=== PATIENT | male | born 1955 | race Caucasian/White ===

== ENCOUNTER 2019-06-25 15:54 | Emergency (ER) | payer MEDICARE, OTHER, SELFPAY ==
[2019-06-25] VITALS (12 sets, daily range): BP systolic 112–150; BP diastolic 83–107; PULSE 92–148; RESP 16–22; TEMP 36.7; O2SAT 93–96
--- NOTE | ~2019-06-25 | XR_ITS ---
EXAMINATION: XR chest 2V DATE: 06/25/2019 16:37 INDICATION: Tachycardia, atrial fibrillation TECHNIQUE: PA and lateral views of the chest are obtained. COMPARISON: CT, 10/07/2018 FINDINGS: There is a stable granuloma of the right lower lobe. The lungs are free of acute opacities. There is no pleural effusion or pneumothorax. The cardiomediastinal silhouette is normal. There are bridging osteophytes at multiple levels in the spine, consistent with diffuse idiopathic skeletal hyp erostosis (DISH). IMPRESSION: 1. No acute cardiopulmonary abnormality. Reviewed, dictated and finalized at location A. SMISSION TECHNICIAN
--- NOTE | 2019-06-25 16:09 | ECG_ITS ---
Measurements Intervals [place] Rate: 139 P: 184 CA: 116 QRS: -42 QRSD: 86 T: 78 QT: 302 QTc: 460 Interpretive Statements ATRIAL FLUTTER/TACHYCARDIA WITH RAPID VENTRICULAR RESPONSE LEFT AXIS DEVIATION DELAYED PRECORDIAL R/S TRANSITION NONSPECIFIC ST & T-WAVE ABNORMALITY- LATERAL LEADS BASELINE ARTIFACT- II, AVR, AVL, AVF, V1-V2 ABNORMAL ECG Electronically Signed On 06-25-2019 16:29:39 CLINICAL TRIALS MANAGER by Rafael Rivera D.O.
[2019-06-25 16:22] LABS: Basophils Absolute Auto 0.1 K/mm3 (0.0-0.1); Basophils Percent Auto 0.9 % (0.2-1.2); Eosinophils Absolute Auto 0.2 K/mm3 (0-0.3); Hematocrit 47.6 % (42.0-52.0); Hemoglobin 15.7 g/dL (14.0-18.0); Immature Granulocyte Absolute 0.02 K/mm3 (0.00-0.031); Immature Granulocyte Percent A 0.3 % (0-0.5); Lymphocytes Absolute Auto 1.53 K/mm3 (0.9-3.2); Lymphocytes Percent Auto 19.4 % (18.3-44.2); Mean Corpuscular Hemoglobin 31.9 pg (26-34); Mean Corpuscular Volume 96.7 fl (80-100); Mean Platelet Volume 11.3 fl (7.4-10.4); Monocytes Absolute Auto 1.2 K/mm3 (0.1-0.6); Monocytes Percent Auto 14.7 % (2.6-8.5); Neutrophils Percent Auto 62.7 % (45.5-73.1); Platelet Count Result 293 k/mm3 (150-375); Red Blood Count 4.92 M/mm3 (4.6-6.20); Red Cell Distribution Width 13.5 % (11.5-14.5); White Blood Count 7.9 K/mm3 (4.5-10.0)
--- NOTE | 2019-06-25 16:22 | ED.ARRPALP ---
HPI - Arrhythmia/Palpitations General Chief Complaint: Arrhythmia/Palpitations Stated Complaint: Rapid Heart Rate Time Seen by Provider: 06/25/19 16:20 Source: patient, family and RN notes reviewed Mode of arrival: ambulatory Limitations: no limitations History of Present Illness HPI narrative: A 64 y/o male presents to the ED with constant tachycardia for the past 3 days. He states that his HR has been between 130-140 for the past 3 days. He reports some associated intermittent dizziness and intermittent SOB. He notes that he has a hx of A-fib for which he had a ablation done. He denies any fevers, chills, sweats, CP, N/V/D, ABD pain, and any other complaints at this time. MD complaint: rapid heart beat Onset (ago): day(s) (3) Duration: constant Arrhythmia history: atrial fibrillation and history of ablation Associated symptoms: shortness of breath and other (dizziness) Related Data Home Medications Medication Instructions Recorded Confirmed Saccharomyces boulardii 250 mg 250 mg PO DAILY cap 05/08/19 06/25/19 capsule dronedarone 400 mg tablet 400 mg PO DAILY tablet 05/08/19 06/25/19 ibuprofen 200 mg capsule 200 mg PO Q6H PRN 05/08/19 06/25/19 omeprazole 20 mg capsule,delayed 20 mg PO DAILY PRN 05/08/19 06/25/19 release psyllium seed (sugar) 2 tsp PO DAILY gm 05/08/19 06/25/19 Allergies Allergy/AdvReac Type Severity Reaction Status Date / Time Sulfa (Sulfonamide Allergy Unknown Headache Verified 06/25/19 14:33 Antibiotics) Review of Systems Review of Systems: All systems reviewed & are unremarkable except as noted in HPI and below Constitutional: Constitutional: Denies chills, Denies fatigue, Denies fever(s), Denies headache(s) and Denies night sweats Eyes: Eyes: Denies change in vision, Denies loss of vision and Denies other visual disturbances ENT: Denies headache(s), Denies hoarseness, Denies epistaxis, Denies nasal congestion and Denies sore throat Cardiovascular: Cardiovascular: Denies chest pain, Reports rapid heart rate and Denies leg edema Respiratory: Respiratory: Denies cough, Reports dyspnea (intermittent) and Denies wheezing Gastrointestinal: Gastrointestinal: Denies abdominal pain, Denies diarrhea, Denies nausea and Denies vomiting Genitourinary: Genitourinary: Denies hematuria, Denies dysuria and Denies urinary frequency Musculoskeletal: Musculoskeletal: Denies abnormal gait, Denies deformity, Denies joint swelling, Denies muscle weakness and Denies numbness Integumentary/Breasts: Skin/Breast: Denies rash, Denies unusual bruising and Denies wounds Neurologic: Denies abnormal gait, Reports dizziness (intermittent), Denies headache(s), Denies focal weakness, Denies loss of vision and Denies numbness Psychiatric: Psychiatric: Reports no additional psychiatric complaints Endocrine: Endocrine: Denies fatigue Hematologic/Lymphatic: Hematologic/Lymphatic: Denies easy bleeding and Denies easy bruising Allergic/Immunologic: Allergic/Immunologic: Denies wheezing PMFSH Past Medical History Medical History Atrial fibrillation BCC (basal cell carcinoma) Dermatitis Diverticulosis GERD (gastroesophageal reflux disease) Hemorrhoid History of GI bleed History of rectal polyps Hyperlipidemia Hypertension Hypothyroidism Mumps Type 2 diabetes mellitus Wrist fracture, left Surgical History Surgical History H/O prior ablation treatment 05/2015 H/O shoulder surgery 05/2016 History of local excision of skin lesion History of nasal surgery Hx of cardiac cath Family History Family History Mother Acute myocardial infarction Sibling Family history of malignant neoplasm of breast in first degree relative Father Pharyngeal cancer Social History Social History Smoking status: Former smoker Smoking end date:
[2019-06-25 16:32] LABS: Prothrombin Time 12.5 Seconds (11.1-14.7)
[2019-06-25 16:33] LABS: Blood Urea Nitrogen 15 mg/dL (9-20); Calcium 9.4 mg/dL (8.4-10.2); Carbon Dioxide 23 mmol/L (22-30); Chloride 101 mmol/L (98-107); Estimated Glomerular Filt Rate > 60; Glucose 129 mg/dL (75-110); Partial Thromboplastin Time 26.2 SECONDS (22.3-36.8); Sodium 139 mmol/L (137-145)
[2019-06-25 16:45] LABS: Troponin I < 0.012 ng/mL (0.000-0.034)
[2019-06-25] MEDS: METOPROLOL TARTRATE INJ 5 MG/5 ML VIAL IV PUSH ×4 (17:06→20:14)
[2019-06-25] MEDS: LACTATED RINGERS 1,000 ML 999 ML IV CONT (17:06)
--- NOTE | 2019-06-25 18:03 | ECG_ITS ---
Measurements Intervals [place] Rate: 100 P: RI: 0 QRS: -48 QRSD: 101 T: 62 QT: 352 QTc: 455 Interpretive Statements ATRIAL FLUTTER/TACHYCARDIA WITH RAPID VENTRICULAR RESPONSE LEFT ANTERIOR FASCICULAR BLOCK VOLTAGE CRITERIA FOR LVH ABNORMAL ECG Electronically Signed On 06-25-2019 20:06:23 PRODUCTION CONTROL EXPERT by Rafael Rivera D.O.
--- NOTE | 2019-06-25 19:16 | PC.NURSE ---
pt received 1l NS as ordered would not allow me to stop infusion
[2019-06-25 19:48] LABS: Troponin I 0.013 ng/mL (0.000-0.034)
[2019-06-25] MEDS: ASPIRIN 81 MG CHEWABLE TABLET 324 MG PO (20:13)
== END 2019-06-25 20:53 | disposition home or self-care (01) ==
PROVIDERS: Emergency Medicine; Emergency Provider Emergency Medicine; PCP Internal Medicine
DX: I48.92 Unspecified atrial flutter (principal); Z85.828 Personal history of other malignant neoplasm of skin; K21.9 Gastro-esophageal reflux disease without esophagitis; Z87.19 Personal history of other diseases of the digestive system; E78.5 Hyperlipidemia, unspecified; I10 Essential (primary) hypertension; E03.9 Hypothyroidism, unspecified; E11.9 Type 2 diabetes mellitus without complications; Z87.891 Personal history of nicotine dependence
CPT/HCPCS: 36415; 71046; 80048; 84443; 84484; 85025; 85610; 85730; 93005; 96361; 96374; 96376; 99284; A9270; J7120

== ENCOUNTER 2020-01-25 01:14 | Outpatient (CLI) | payer MEDICARE, OTHER, SELFPAY ==
[2020-01-25 18:02] LABS: SARS-CoV-2 RNA PCR Negative
== END 2020-01-25 01:15 | disposition home or self-care (01) ==
LOC: ANHCOVIDDT 01:15
PROVIDERS: PCP Internal Medicine; Visit Provider Internal Medicine Gastroenterology
DX: Z01.812 Encounter for preprocedural laboratory examination (principal); Z20.828 Contact with and (suspected) exposure to other viral communicable diseases
CPT/HCPCS: 87635; C9803; U0003

== ENCOUNTER 2020-01-27 02:12 | Day surgery (SDC) | payer MEDICARE, OTHER, SELFPAY ==
[2020-01-22 13:58] VITALS: BMI 34.0
[2020-01-27 09:47] VITALS: BP 148/80; PULSE 69; RESP 16; TEMP 36.6; O2SAT 95; BMI 34.0
[2020-01-27] MEDS: LACTATED RINGERS 1,000 ML 150 ML IV CONT (09:58)
--- NOTE | 2020-01-27 10:02 | WPDANESEPPF ---
Anes - Initial Pre Proc Eval Procedure: Operation Date: 01/27/20 10:30 Proposed Procedures p Colonoscopy - Luis Linares MD Date/Time: 01/27/20 10:02 Surgeon: Luis Linares MD Pre Op Diagnosis: Change in Bowel Habits Patient Data Age: 64 Gender: M Height: 6 ft 2 in Weight: 120.4 kg Last Vital Signs Temp 36.6 C 01/27/20 09:47 Pulse 69 01/27/20 09:47 Resp 16 01/27/20 09:47 BP 148/80 H 01/27/20 09:47 Pulse Ox 95 01/27/20 09:47 Allergies Allergy/AdvReac Type Severity Reaction Status Date / Time Sulfa (Sulfonamide Allergy Unknown Headache Verified 01/27/20 09:46 Antibiotics) Home Medications Medication Instructions Recorded Confirmed Type blood sugar diagnostic #100 each 05/05/19 06/25/19 Rx blood-glucose meter #1 each 05/08/19 06/25/19 Rx psyllium seed (sugar) 2 tsp PO DAILY gm 05/08/19 01/22/20 History levothyroxine 75 mcg tablet 75 mcg PO DAILY #90 tablet 10/06/19 01/27/20 Rx apixaban 5 mg tablet 5 mg PO BID 12/09/19 01/27/20 History omeprazole magnesium 20 mg 20 mg PO DAILY 12/09/19 01/22/20 History tablet,delayed release pravastatin 20 mg tablet 20 mg PO DAILY #90 tablet 12/17/19 01/22/20 Rx losartan 50 mg PO DAILY 01/22/20 01/27/20 History metformin 500 - 1,000 mg BID 01/22/20 01/27/20 History metoprolol tartrate 75 mg PO BID 01/22/20 01/27/20 History Patient hx anesthesia problems: none Family hx anesthesia problems: none PMFSH Past Medical History Medical History Atrial fibrillation BCC (basal cell carcinoma) Dermatitis Diverticulosis GERD (gastroesophageal reflux disease) Hemorrhoid History of GI bleed History of rectal polyps Hyperlipidemia Hypertension Hypothyroidism Mumps Type 2 diabetes mellitus Wrist fracture, left Surgical History Surgical History H/O prior ablation treatment 05/2015 H/O shoulder surgery 05/2016 History of local excision of skin lesion History of nasal surgery Hx of cardiac cath Status post circumferential ablation of pulmonary vein Family History Family History Mother Acute myocardial infarction Sibling Family history of malignant neoplasm of breast in first degree relative Father Pharyngeal cancer Social History Social History Smoking packs per day: 1.5 Smoking cigarettes per day: 30.0 Years smoked: 30 Smoking pack-years: 45.00 Smoking status: Former smoker Tobacco type: cigarettes Smoking end date: 04/29/11 Alcohol intake: current Drinks per week: 21 Living arrangements: with family Gender identity (if verbalized by the patient): Male Spiritual care concerns: No Anes - Eval Final PreProcedure Day of Procedure 01/27/20 10:02 Patient weight: obese Heart: regular rate and rhythm Lungs: decreased breath sounds Airway: Mallampati scale class III Neurological: alert and oriented Last oral intake: >/= 8 hours ASA classification: III Emergent: no Anesthetic plan: proceed Anesthesia type and monitoring: general GIVS and standard monitoring Informed Consent: The patient's anesthetic plan and its attendant risks and benefits were discussed with the patient/family/POA. Questions were solicited and answers provided to the satisfaction of the patient/family/POA.
[2020-01-27 10:04] LABS: Glucose Point of Care 143 (65-105)
--- NOTE | 2020-01-27 10:04 | PM.HPGS ---
History of Present Illness History of Present Illness Consent: Risks, benefits, and alternatives have been discussed and questions answered. Patient agrees to proceed with procedure. Chief complaint: Change in Bowel Habits Narrative: Ghassan Pacheco is a 64 year old W male referred for colonoscopy secondary history of chronic diarrhea. Patient has been evaluated for this in the past. colonoscopy was normal random biopsies were negative for microscopic colitis. There is a family history of inflammatory bowel disease 1 son with ulcerative colitis and another son with Crohn's disease. Patient was evaluated in [place] several years prior to that time negative evaluation. He has had celiac sprue antibodies which are negative. Blood work was otherwise normal. Patient is diabetic he is on metformin which could be playing a role in his symptoms as well. Patient states that he has 2-3 soft loose to soft bowel movements in the morning. He has no rectal bleeding no weight loss. No family history of colon cancer. [facility] Past Medical History Medical History Atrial fibrillation BCC (basal cell carcinoma) Dermatitis Diverticulosis GERD (gastroesophageal reflux disease) Hemorrhoid History of GI bleed History of rectal polyps Hyperlipidemia Hypertension Hypothyroidism Mumps Type 2 diabetes mellitus Wrist fracture, left Surgical History Surgical History H/O prior ablation treatment 05/2015 H/O shoulder surgery 05/2016 History of local excision of skin lesion History of nasal surgery Hx of cardiac cath Status post circumferential ablation of pulmonary vein Family History Family History Mother Acute myocardial infarction Sibling Family history of malignant neoplasm of breast in first degree relative Father Pharyngeal cancer Social History Social History Smoking packs per day: 1.5 Smoking cigarettes per day: 30.0 Years smoked: 30 Smoking pack-years: 45.00 Smoking status: Former smoker Tobacco type: cigarettes Smoking end date: 04/29/11 Alcohol intake: current Drinks per week: 21 Living arrangements: with family Gender identity (if verbalized by the patient): Male Spiritual care concerns: No Meds Home Medications and Allergies Home Medications Medication Instructions Recorded Confirmed Type blood sugar diagnostic #100 each 05/05/19 06/25/19 Rx blood-glucose meter #1 each 05/08/19 06/25/19 Rx psyllium seed (sugar) 2 tsp PO DAILY gm 05/08/19 01/22/20 History levothyroxine 75 mcg tablet 75 mcg PO DAILY #90 tablet 10/06/19 01/27/20 Rx apixaban 5 mg tablet 5 mg PO BID 12/09/19 01/27/20 History omeprazole magnesium 20 mg 20 mg PO DAILY 12/09/19 01/22/20 History tablet,delayed release pravastatin 20 mg tablet 20 mg PO DAILY #90 tablet 12/17/19 01/22/20 Rx losartan 50 mg PO DAILY 01/22/20 01/27/20 History metformin 500 - 1,000 mg BID 01/22/20 01/27/20 History metoprolol tartrate 75 mg PO BID 01/22/20 01/27/20 History Allergies Allergy/AdvReac Type Severity Reaction Status Date / Time Sulfa (Sulfonamide Allergy Unknown Headache Verified 01/27/20 09:46 Antibiotics) Vital Signs Vital Signs - 24 hr 01/27/20 09:47 Temperature 36.6 C Pulse Rate 69 Respiratory Rate 16 Blood Pressure 148/80 H Pulse Oximetry 95 Exam Const: Orientation/consciousness: patient oriented x3 Resp: Auscultation: clear to auscultation bilaterally Cardio: Rate: regular rate Rhythm: regular rhythm Heart sounds: no murmurs GI: GI Palp: Yes Soft to palpation, No Tenderness to palpation present (GI), Yes No hepatosplenomegaly present and No Palpable mass present Auscultation: normal bowel sounds Neuro: General: patient oriented x3 and no focal motor deficits Extrem:
[2020-01-27 11:03] VITALS: BP 109/62; PULSE 67; RESP 17; O2SAT 95
[2020-01-27 11:13] VITALS: BP 117/67; PULSE 61; RESP 18; O2SAT 93
[2020-01-27 11:23] VITALS: BP 133/69; PULSE 60; RESP 18; O2SAT 94
== END 2020-01-27 11:40 | disposition home or self-care (01) ==
PROVIDERS: PCP Internal Medicine; Visit Provider Internal Medicine Gastroenterology
PROC: 0DJD8ZZ Inspection of Lower Intestinal Tract, Via Natural or Artificial Opening Endoscopic (ICD-10-PCS; CPT 45378; principal; 2020-01-27 10:30)
DX: Z12.11 Encounter for screening for malignant neoplasm of colon (principal); K57.30 Diverticulosis of large intestine without perforation or abscess without bleeding; K64.8 Other hemorrhoids; K64.4 Residual hemorrhoidal skin tags; I48.91 Unspecified atrial fibrillation; K21.9 Gastro-esophageal reflux disease without esophagitis; E78.5 Hyperlipidemia, unspecified; I10 Essential (primary) hypertension; E03.9 Hypothyroidism, unspecified; E11.9 Type 2 diabetes mellitus without complications; Z79.01 Long term (current) use of anticoagulants; Z79.84 Long term (current) use of oral hypoglycemic drugs; E66.9 Obesity, unspecified; Z68.34 Body mass index [BMI] 34.0-34.9, adult
CPT/HCPCS: G0121; J7120

== ENCOUNTER 2020-10-07 07:29 | Outpatient (CLI) | payer MEDICARE, OTHER, SELFPAY ==
--- NOTE | 2020-10-07 | EST_ITS ---
Patient Info Name: Ghassan Pacheco Age: 65 years : 1955 Gender: Male Ht: 74 in Wt: 265 lbs BSA: 2.54 m2 Exam Date: 10/07/2020 9:37 AM Exam Location: [facility] Stress Patient Status: Outpatient Admit Date: 10/07/2020 Staff Ordering Physician: Rafael Rivera DO Attending Provider: Rafael Rivera DO Exercise Technologist: Julieta Tafoya RDCS Exercise Physician: Rafael Rivera DO Exam Type: CA stress romaine w NM Study Info A regadenoson stress test was performed. Summary 1. 1. Negative lexiscan stress test for ischemic ST changes by ECG criteria. 2. 2. Frequent ventricular ectopies. 3. 3. Stable hemodynamics throughout the test. 4. 4. Nuclear scan to follow and will be reported separately. Please correlate with it. Protocol: Lexiscan Stress ECG Details Stage: REST Duration (min): 5 min : 38 sec HR (bpm): 69 SBP (mmHg): 128 DBP (mmHg): 87 Stage: REST Duration (min): 5 min : 58 sec HR (bpm): 65 SBP (mmHg): 128 DBP (mmHg): 87 Stage: REST Duration (min): 12 min : 40 sec HR (bpm): 71 SBP (mmHg): 128 DBP (mmHg): 87 Stage: STAGE 1 Duration (min): 1 min : 0 sec HR (bpm): 84 SBP (mmHg): 123 DBP (mmHg): 89 Stage: RECOVERY Duration (min): 1 min : 0 sec HR (bpm): 83 SBP (mmHg): 123 DBP (mmHg): 89 Stage: RECOVERY Duration (min): 2 min : 0 sec HR (bpm): 81 SBP (mmHg): 123 DBP (mmHg): 89 Stage: RECOVERY Duration (min): 3 min : 0 sec HR (bpm): 78 SBP (mmHg): 107 DBP (mmHg): 93 Stage: RECOVERY Duration (min): 4 min : 0 sec HR (bpm): 81 SBP (mmHg): 107 DBP (mmHg): 93 Stage: RECOVERY Duration (min): 5 min : 0 sec HR (bpm): 78 SBP (mmHg): 107 DBP (mmHg): 93 Stage: RECOVERY Duration (min): 5 min : 42 sec HR (bpm): 78 SBP (mmHg): 127 DBP (mmHg): 96 Rest HR: 71 bpm Peak HR: 90 bpm Rest Sys BP: 128 mmHg Peak Sys BP: 127 mmHg Max Pred HR: 153 bpm % Max Pred HR: 59 % Target HR: 130 bpm Max RPP: 11,430 bpm*mmHg Termination Reason: Completed protocol Cardiac Symptoms: Shortness of breath Total Time: 1 min : 0 sec Rest Newman BP: 87 mmHg Peak Newman BP: 96 mmHg Total Dose: 0.4 mg Resting ECG Sinus rhythm, BRWP, frequent PVC's. Stress ECG No ST changes. Arrhythmias None. Report Signatures
--- NOTE | ~2020-10-07 | NM_ITS ---
EXAMINATION: NM romaine stress w perfusion DATE: 10/07/2020 10:48 INDICATION: Dyspnea on exertion. TECHNIQUE: Rest images were obtained following intravenous administration of 11.5 mCi Tc99m tetrofosm in (Myoview). The patient was infused intravenously with Lexiscan (regadenoson). Then, 33.7 mCi Tc99m tetrofosmin (Myoview) was administered intravenously, and stress images were obtained. Data was lita nstructed into short axis and horizontal and vertical long axis SPECT images. Gated SPECT images were also obtained. COMPARISON: None. FINDINGS: There is a small, mild, reversible perfusion defect involving apical lateral segment of lef t ventricle, consistent with ischemia. There is no segmental wall motion abnormality. Left ventricu lar ejection fraction measures 54%. IMPRESSION: 1. Small area of mild ischemia involving apical lateral segment of left ventricle.. 2. Normal left ventricular ejection fraction measuring 54%. Reviewed, dictated and finalized at location A. IMPRESSION: 1. Small area of mild ischemia involving apical lateral segment of left ventric le.. 2. Normal left ventricular ejection fraction measuring 54%.
--- NOTE | 2020-10-07 07:50 | ECHO_ITS ---
Patient Info Name: Ghassan Pacheco Age: 65 years : 1955 Gender: Male Ht: 74 in Wt: 265 lbs BSA: 2.54 m2 HR: 77 bpm BP: 160 / 90 mmHg Technical Quality: Good Exam Date: 10/07/2020 8:03 AM Exam Location: [facility] Patient Status: Outpatient Admit Date: 10/07/2020 Staff Ordering Physician: Rafael Rivera DO Missile Inspector: Robert Doshi RDCS, RT Attending Provider: Rafael Rivera DO Referring Physician: Miguel SAMUEL; Exam Type: CA echo doppler color flow Study Info Indications R06.00 - Dyspnea, unspecified Complete two-dimensional, color flow and Doppler transthoracic echocardiogram is performed. Summary 1. Complete two-dimensional, color flow and Doppler transthoracic echocardiogram is performed. 2. Left ventricular chamber dimension is mildly enlarged. 3. Left ventricular systolic function is normal, estimated at 55-60%. 4. There is moderately increased left ventricular wall thickness. 5. The left ventricular diastolic function is normal. 6. Tissue doppler is not performed. 7. Ventricular ectopics during exam. 8. Left atrial chamber dimension is moderately enlarged. 9. Right atrial chamber dimension is mildly enlarged. 10. The mitral valve has moderately calcified annulus. 11. There is moderate mitral valve regurgitation. 12. There is trace tricuspid valve regurgitation. 13. Mild pulmonary hypertension, estimated pulmonary arterial systolic pressure is 49 mmHg. 14. Dilated inferior vena cava with >50% collapse upon inspiration consistent with elevated right atrial pressure, 10 mmHg. Left Ventricle Tissue doppler is not performed. Left ventricular chamber dimension is mildly enlarged. Left ventricular systolic function is normal, estimated at 55-60%. There is moderately increased left ventricular wall thickness. The left ventricular diastolic function is normal. Ventricular ectopics during exam. Right Ventricle Right ventricular systolic function is normal with normal TAPSE 2.8 cm.. Right ventricular chamber dimension is normal. Left Atria Left atrial chamber dimension is moderately enlarged. Right Atria Right atrial chamber dimension is mildly enlarged. Aortic Valve The aortic valve is trileaflet. There is no aortic valve stenosis. There is no aortic valve regurgitation. Pulmonic Valve There is no pulmonic regurgitation. Mitral Valve The mitral valve has moderately calcified annulus. There is no mitral valve stenosis. There is moderate mitral valve regurgitation. Tricuspid Valve There is trace tricuspid valve regurgitation. Mild pulmonary hypertension, estimated pulmonary arterial systolic pressure is 49 mmHg. Pericardium/Pleural There is no pericardial effusion. Inferior Vena Cava Dilated inferior vena cava with >50% collapse upon inspiration consistent with elevated right atrial pressure, 10 mmHg. Aorta The aortic root size at the sinus of Valsalva is normal. Left Ventricular Outflow Tract Name Value Normal LVOT 2D LVOT Diameter 2.2 cm LVOT Doppler LVOT Peak Gradient 4 mmHg LVOT Mean Gradient 1 mmHg
== END 2020-10-07 07:30 | disposition home or self-care (01) ==
PROVIDERS: PCP Internal Medicine; Visit Provider Internal Medicine Cardiovascular Disease
DX: R06.00 Dyspnea, unspecified (principal)
CPT/HCPCS: 78452; 93017; 93306; A9502; J2785

== ENCOUNTER 2020-10-25 01:50 | Day surgery (SDC) | payer MEDICARE, OTHER, SELFPAY ==
[2020-10-24 14:35] VITALS: BMI 34.0
[2020-10-25] VITALS (9 sets, daily range): BP systolic 119–141; BP diastolic 70–88; PULSE 56–71; RESP 16–18; TEMP 36.1–36.2; O2SAT 94–98; BMI 34.4
--- NOTE | 2020-10-25 08:29 | WPDMODSED ---
Moderate Sedation Note-Pt Data Patient Data Allergies Allergy/AdvReac Type Severity Reaction Status Date / Time Sulfa (Sulfonamide Allergy Unknown Headache Verified 10/24/20 14:45 Antibiotics) Home Medications Medication Instructions Recorded Confirmed Type blood-glucose meter #1 each 05/08/19 10/13/20 Rx apixaban 5 mg tablet 5 mg PO BID 12/09/19 10/24/20 History pravastatin 20 mg tablet 20 mg PO DAILY #90 tablet 12/17/19 10/24/20 Rx levothyroxine 75 mcg tablet 75 mcg PO DAILY #90 tablet 08/31/20 10/24/20 Rx losartan 100 mg tablet 100 mg PO DAILY #30 tablet 09/14/20 10/24/20 Rx omeprazole magnesium 20 mg 40 mg PO DAILY tablet 10/04/20 10/24/20 History tablet,delayed release cholestyramine-aspartame 4 gram 4 g PO DAILY #42 g 10/11/20 10/24/20 Rx oral powder for susp in a packet glipizide 5 mg tablet 5 mg PO DAILY #90 tablet 10/11/20 10/24/20 Rx metformin 1,000 mg tablet 1,000 mg PO BID #180 tablet 10/11/20 10/24/20 Rx psyllium husk [Metamucil] 1 tbsp PO DAILY 10/24/20 10/24/20 History Current Medications: Active Medications Sodium Chloride (Normal Saline Iv) 500 mls @ 100 mls/hr IV CONT .Q5H JENNIFER Sedation/Anesthesia: No previous sedation/anesthesia problems (including family history). [facility] Past Medical History Medical History Atrial fibrillation BCC (basal cell carcinoma) Dermatitis Diverticulosis GERD (gastroesophageal reflux disease) Hemorrhoid History of GI bleed History of rectal polyps Hyperlipidemia Hypertension Hypothyroidism Mumps Type 2 diabetes mellitus Wrist fracture, left Surgical History Surgical History H/O prior ablation treatment 05/2015 H/O shoulder surgery 05/2016 History of local excision of skin lesion History of nasal surgery Hx of cardiac cath Status post circumferential ablation of pulmonary vein Family History Family History Mother Acute myocardial infarction Sibling Family history of malignant neoplasm of breast in first degree relative Father Pharyngeal cancer Social History Social History Smoking packs per day: 1.5 Smoking cigarettes per day: 30.0 Years smoked: 45 Smoking pack-years: 67.50 Smoking status: Former smoker Tobacco type: cigarettes Smoking end date: 04/29/14 Alcohol intake: current Drinks per week: 7 Alcohol use details: patient states he drinks 1-2 glasses of liquor per night Substance use: never Living arrangements: with family Gender identity (if verbalized by the patient): Male Sexual Orientation (if Verbalized by the Patient): Straight or Heterosexual Spiritual care concerns: No Mod Sed Physical Exam Physical Exam Pre Procedural Exam: Normal: Airway Hours since solid foods: 10 Hours since liquid intake: 10 Internal Medicine - PN: Obj Da Vital Signs Vital Signs: Vital Signs - 24 hr 10/25/20 07:31 Temperature 36.2 C L Pulse Rate 71 Respiratory Rate 18 Blood Pressure 141/70 H Pulse Oximetry 97 Meds/Results Medications: Active Medications Generic Name Dose Route Start Last Admin Trade Name Freq PRN Reason Stop Dose Admin Sodium Chloride 500 mls @ 100 mls/hr 10/25/20 07:00 Normal Saline Iv IV CONT .Q5H JENNIFER ASA Classification/Sedation ASA Classification/Sedation ASA Class: III Emergent: No Risks: Risks, benefits and alternatives explained and patient/family accepted plan for sedation. Patient re-evaluated immediately prior to sedation.
--- NOTE | 2020-10-25 08:30 | WPDHPUPDATE1 ---
History and Physical Update Update Date/Time: 10/25/20 08:30 History and Physical has been reviewed, including an updated exam of the patient. There are NO changes in the patient's condition. Risks, benefits, and alternatives have been discussed and questions answered. Patient agrees to proceed with procedure.
--- NOTE | 2020-10-25 09:06 | WPDCARDPROC ---
Cardiac Cath Procedure Note Date of procedure:: 10/25/20 Performing physician:: Keith Cruz MD Procedure Procedure note:: LEFT HEART CATHETERIZATION AND CORONARY ANGIOGRAM REPORT DATE OF PROCEDURE: 10/25/2020 INDICATION FOR PROCEDURE: Dyspnea on exertion, coronary risk factors, abnormal MPI BRIEF CLINICAL HISTORY: 65-year-old male with hypertension, atrial fibrillation with history of radiofrequency ablation x2; diabetes mellitus, JAZ on CPAP, COPD. Patient was referred by Dr. Rivera for cardiac catheterization in the setting of dyspnea on exertion and abnormal MPI. MPI from 10/07/2020 reportedly showed small area of mild ischemia involving apical lateral segment of left ventricle; EF 54%. Benefits and risks of the procedure were discussed with the patient in depth, and informed consent was obtained prior to the procedure. Risks of the procedure include but are not limited to vascular complications including groin hematoma, retroperitoneal bleed, vessel perforation; periprocedural CA, cardiac arrhythmias, stroke, contrast induced nephropathy, and . After discussing all the benefits, risks and alternatives, patient was willing to proceed with the procedure. PROCEDURES PERFORMED: 1. Left heart catheterization- Selective left and right coronary angiogram; left ventriculogram and hemodynamic assessment 2. Selective right common femoral angiogram and deployment of Angio-Seal hemostatic device 3. Moderate sedation-CPT code 17124 MODERATE SEDATION: Midazolam 2 mg; fentanyl 50 mcg; Start time 0827 , Stop time 0900 ; Total [id number] time 33 minutes; Marly Guzmán RN was trained observer for moderate sedation. ACCESS SITE: Right common femoral artery PROCEDURE NOTE: After obtaining informed consent, patient was brought to catheterization lab and prepped and draped in a usual sterile manner. After local anesthesia with lidocaine, right common femoral artery access was taken with micropuncture needle followed by insertion of a 5 Dutch sheath. Selective left and right coronary angiogram was performed using 5 Dutch JL5 and JR4 catheters respectively. Orthogonal views were taken. Next, a 5 Dutch pigtail catheter was advanced in the LV cavity and was flushed with normal saline. LV pressure measurement was performed. After this, left ventriculogram was performed. The catheter was flushed again, and gradient across the aortic valve was measured on the pullback of the catheter. Finally, selective right common femoral angiogram was performed followed by successful deployment of Angio-Seal vascular closure device. Patient tolerated procedure well without any immediate procedure related complications. FINDINGS: LEFT MAIN CORONARY: the left main coronary artery is a large caliber ectatic vessel without significant focal stenosis. The vessel trifurcates into LAD, ramus intermedius and left circumflex branches. LEFT ANTERIOR DESCENDING ARTERY: The LAD has diffuse ectasia in the proximal segment with diffuse calcification; diffuse 30-40% narrowing in the upper mid segment distal to the ectatic segment. Minor irregularities are seen in the lower mid segment. The vessel tapers distally and reaches the LV apex. Sluggish blood flow is seen in the LAD. Major diagonal branch is a medium caliber vessel without significant focal stenosis. RAMUS INTERMEDIUS: Large caliber vessel with minor irregularities in the proximal segment. LEFT CIRCUMFLEX ARTERY: Medium to large caliber vessel, gives rise to smaller caliber OM1 and OM2, LPDA branches. No significant focal stenosis. RIGHT CORONARY ARTERY: medium caliber, codominant vessel. Minor plaque is seen in the proximal segment . The vessel continues as small to medium caliber PDA branch. LEFT VENTRICULOGRAM: Ventricular ectopy was seen during left ventriculogram. LV systolic function is preserved; ejection fraction about 60%. LVEDP 7 mmHg. HEMODYNAMIC ASSESSMENT: Opening pressure 111/64 , closing pressu
--- NOTE | 2020-10-25 09:13 | SUR.PHASEII ---
RETURNS TO HEAD OF [employer]TEGRATED [employer] 5 S/P [facility] W/ DR. BUTTERFIELD. AWAKE AND ALERT ON ARRIVAL. DENIES PAIN OR SOB. MONITOR SR W/ BIGEMINAL PVC'S NOTED. R. GROIN SITE SOFT, NONTENDER ON ARRIVAL. GAUZE AND TEGADERM DRESSING C/D/I. ANGIOSEAL CLOSURE TO R. GROIN PUNCTURE SITE. R. PEDAL PULSE STRONG. SENSATION AND MOVEMENT R. FOOT WNL. REVIEWED BEDREST ACTIVITY RESTRICTIONS W/ PT AND . VOICED UNDERSTANDING. IVF'S RUNNING ORDERED. WILL CONTINUE TO MONITOR.
--- NOTE | 2020-10-25 12:20 | SUR.PHASEII ---
REVIEWED DISCHARGE INSTRUCTIONS AND FOLLOW UP CARE W/ PT AND . QUESTIONS ANSWERED. VOICED UNDERSTANDING OF ALL. R. GROIN SITE UNCHANGED. DRESSING C/D/I. R. PEDAL PULSE STRONG. DISCHARGED HOME, OUT VIA WC TO 'S WAITING CAR WITH ALL PERSONAL BELONGINGS AND DISCHARGE PACKET. VOICES NO C/O. NO DISTRESS NOTED.
== END 2020-10-25 12:20 | disposition home or self-care (01) ==
PROVIDERS: PCP Internal Medicine; Visit Provider Internal Medicine Cardiovascular Disease
PROC: 4A023N7 Measurement of Cardiac Sampling and Pressure, Left Heart, Percutaneous Approach (ICD-10-PCS; CPT 93452; principal; 2020-10-25 08:00)
DX: I25.10 Atherosclerotic heart disease of native coronary artery without angina pectoris (principal); R06.00 Dyspnea, unspecified; I48.91 Unspecified atrial fibrillation; I49.8 Other specified cardiac arrhythmias; E11.9 Type 2 diabetes mellitus without complications; R94.39 Abnormal result of other cardiovascular function study; I10 Essential (primary) hypertension; G47.33 Obstructive sleep apnea (adult) (pediatric); J44.9 Chronic obstructive pulmonary disease, unspecified; Z85.828 Personal history of other malignant neoplasm of skin; L30.9 Dermatitis, unspecified; K57.90 Diverticulosis of intestine, part unspecified, without perforation or abscess without bleeding; K21.9 Gastro-esophageal reflux disease without esophagitis; E03.9 Hypothyroidism, unspecified; E78.5 Hyperlipidemia, unspecified; Z87.891 Personal history of nicotine dependence; Z79.01 Long term (current) use of anticoagulants; Z79.84 Long term (current) use of oral hypoglycemic drugs; E66.9 Obesity, unspecified; Z68.34 Body mass index [BMI] 34.0-34.9, adult
CPT/HCPCS: 93458; C1760; C1887; C1894; G0269; J1644; J2250; J3010; J7040

== ENCOUNTER 2021-12-11 16:35 | Outpatient (CLI) | payer MEDICARE, OTHER, SELFPAY ==
--- NOTE | ~2021-12-11 | CT_ITS ---
EXAMINATION:CT lung screening DATE: 12/11/2021 16:55 INDICATION: Tobacco use. Smoker quit 8 years ago with 35 pack year history. TECHNIQUE: Computed tomography (CT) of the chest was performed without intravenous contrast. Automate d exposure control and iterative reconstruction technique were employed. The dose-length product (DLP ) was 233.40 mGy-cm. COMPARISON: Chest CT 10/07/2018 FINDINGS: There is moderate emphysema. A calcified right lung nodule is consistent with old granuloma tous disease. There is mild atelectasis bilaterally. No pleural effusion. Cardiomegaly is noted. Ther e are coronary artery calcifications. No pericardial effusion. There are cysts in the liver measuring up to 3.3 cm. There are bridging endplate osteophytes at multiple levels in the spine, consistent wi th diffuse idiopathic skeletal hyperostosis (DISH). There is mild chronic anterior wedging of multipl e vertebral bodies. IMPRESSION: 1. Lung-RADS category 1: Negative. Continue annual screening with noncontrast low-dose chest CT in 12 months. Reviewed, dictated and finalized at location A. IMPRESSION: 1. Lung-RADS category 1: Negative. Continue annual screening with noncontrast l ow-dose chest CT in 12 months.
== END 2021-12-11 16:36 | disposition home or self-care (01) ==
PROVIDERS: PCP Internal Medicine; Visit Provider Nurse Practitioner
DX: Z12.2 Encounter for screening for malignant neoplasm of respiratory organs (principal); Z87.891 Personal history of nicotine dependence
CPT/HCPCS: 71271

== ENCOUNTER 2022-09-25 11:43 | Outpatient (CLI) | payer MEDICARE, OTHER, SELFPAY ==
[2022-09-25 14:28] LABS: Anion Gap 4 mmol/L (8-16); Blood Urea Nitrogen 24 mg/dL (9-20); Calcium 8.9 mg/dL (8.4-10.2); Carbon Dioxide 32 mmol/L (22-30); Chloride 103 mmol/L (98-107); Estimated Glomerular Filt Rate 60; Glucose 115 mg/dL (65-110); Potassium 4.6 mmol/L (3.4-5.0); Sodium 139 mmol/L (137-145)
== END 2022-09-25 11:44 | disposition home or self-care (01) ==
LOC: ANHGOSHLAB 11:44
PROVIDERS: PCP Family Medicine; Visit Provider Internal Medicine
DX: N28.9 Disorder of kidney and ureter, unspecified (principal)
CPT/HCPCS: 36415; 80048

== ENCOUNTER 2023-07-05 10:49 | Outpatient (CLI) | payer MEDICARE, OTHER, SELFPAY ==
--- NOTE | ~2023-07-05 | CT_ITS ---
CT Scan of the Chest without Contrast: Clinical Indication: Lung cancer screening, personal history of nicotine dependence Technique: Contiguous sections were acquired throughout the chest without intravenous contrast. Dose reduction technique was used on this scan by utilizing automated exposure control and iterative recon struction technique. The dose-length product (DLP) was 237.77 mGy-cm. COMPARISON: 12/11/2021 Findings: There is no evidence of any significant mediastinal, hilar or axillary lymphadenopathy. There are ath erosclerotic calcifications of the aorta and coronary arteries. There is no evidence of pleural or pericardial effusion. There is severe emphysema. 4 mm right middle lobe pulmonary nodule noted. Large calcified right lower lobe granuloma present. Images through the upper abdomen reveal left hepatic lobe cysts. Impression: Lung RADS 2: Benign appearance. 12 month follow-up screening CT advised. Advanced emphysema. Reviewed, dictated and finalized at [facility]. NETMAKER HELPER Impression: Lung RADS 2: Benign appearance. 12 month follow-up screening CT advised. Advanced emphysema.
== END 2023-07-05 10:50 | disposition home or self-care (01) ==
LOC: ANHIMG 10:52
PROVIDERS: PCP Internal Medicine; Visit Provider Nurse Practitioner
DX: Z12.2 Encounter for screening for malignant neoplasm of respiratory organs (principal); Z87.891 Personal history of nicotine dependence; J43.9 Emphysema, unspecified
CPT/HCPCS: 71271

== ENCOUNTER 2023-12-05 02:36 | Day surgery (SDC) | payer MEDICARE, OTHER, SELFPAY ==
[2023-11-21 09:07] VITALS: BMI 33.8
--- NOTE | 2023-12-04 11:14 | PC.NURSE ---
Addendum entered by Francheska Baker RN 12/04/23 15:41: Pt called and stated his dramatic arts historian Dr. Alexander got his message regarding being off the Eliquis for procedure tomorrow as planned and having episodes of a-fib. He stated he is okay to proceed and start the eliquis ambrose after procedure. Original Note: Pt called this morning to let us know he is in and out of A-fib again. He denies CP, sob or symptoms other than occ. palpitations. His rate is in the 60-70's, he stopped his Eliquis with last dose on 10/02/2023. He sent me rhythm strips via e-mail from his Phone.coma monitor, which shows A-fib and sinus rhythm with good rate control. I did speak with Dr. Ludwig anesthesia regarding this patient and we may proceed as long as patients rate remains controlled and he is asymptomatic. I relayed this to Mr. Pacheco and did encourage him to call his EP dramatic arts historian and inform and and inquire if he is okay with him remaining off the Eliquis to have this procedure tomorrow. He will call me after speaking with Dr. Alexander's office.
[2023-12-05 12:14] VITALS: BP 142/79; PULSE 70; RESP 18; TEMP 36.4; O2SAT 95; BMI 33.8
[2023-12-05] MEDS: LACTATED RINGERS 1,000 ML 150 ML IV CONT (12:27)
[2023-12-05 12:38] LABS: Glucose Point of Care 116 mg/dl (65-105)
--- NOTE | 2023-12-05 12:38 | WPDANESEPPF ---
Anes - Initial Pre Proc Eval Procedure: Operation Date: 12/05/23 13:30 Proposed Procedures p Esophagogastroduodenoscopy & Colonoscopy - Ming Craig MD Date/Time: 12/05/23 12:38 Surgeon: Ming Craig MD Pre Op Diagnosis: General abdominal pain, GERD without esophagitis Patient Data Age: 68 Gender: M Height: 1.88 m Weight: 119.5 kg Last Vital Signs Temp 97.5 F L 12/05/23 12:14 Pulse 70 12/05/23 12:14 Resp 18 12/05/23 12:14 BP 142/79 H 12/05/23 12:14 Pulse Ox 95 12/05/23 12:14 O2 Del Method Room Air 12/05/23 12:14 Allergies Allergy/AdvReac Type Severity Reaction Status Date / Time Sulfa (Sulfonamide Allergy Intermediate Headache Verified 12/05/23 12:09 Antibiotics) Home Medications Medication Instructions Recorded Confirmed Type blood-glucose meter (Contour Next #1 ea 05/08/19 12/05/23 Rx Meter) apixaban 5 mg tablet (Eliquis) 5 mg PO BID 12/09/19 12/05/23 History pravastatin 20 mg tablet See Rx Instructions .Route 09/05/22 12/05/23 Rx .COMPLEX #180 tabs loperamide 2 mg capsule (Imodium 2 mg PO Q6H PRN Diarrhea 09/25/22 12/05/23 History A-D) cholestyramine-aspartame 4 gram See Rx Instructions .Route 04/16/23 12/05/23 Rx oral powder for susp in a packet .COMPLEX #30 packets (Cholestyramine Light) blood sugar diagnostic (Contour #100 ea 05/17/23 12/05/23 Rx Next Test Strips) metformin 1,000 mg tablet See Rx Instructions .Route 06/19/23 12/05/23 Rx .COMPLEX #180 tabs metoprolol succinate 25 mg 25 mg PO DAILY 06/19/23 12/05/23 History tablet,extended release 24 hr levothyroxine 75 mcg tablet See Rx Instructions .Route 09/17/23 12/05/23 Rx .COMPLEX #90 tabs omeprazole 40 mg capsule,delayed 40 mg PO DAILY #30 caps 10/10/23 12/05/23 Rx release losartan 100 mg tablet See Rx Instructions .Route 10/14/23 12/05/23 Rx .COMPLEX #90 tabs ibuprofen 200 mg tablet 400 mg PO DAILY PRN Pain 11/21/23 12/05/23 History semaglutide 1 mg/dose (4 mg/3 mL) See Rx Instructions .Route 11/25/23 12/05/23 Rx subcutaneous pen injector (Ozempic) .COMPLEX #3 mL Patient hx anesthesia problems: none Family hx anesthesia problems: none Results Review: All pre-operative results and documents have been reviewed as part of the pre-operative evaluation. [facility] Past Medical History Medical History Atrial fibrillation BCC (basal cell carcinoma) COVID-19 Dermatitis Diverticulosis Emphysema of lung GERD (gastroesophageal reflux disease) Hemorrhoid History of GI bleed History of rectal polyps Hyperlipidemia Hypertension Hypothyroidism Mumps JAZ and COPD overlap syndrome Transaminitis Type 2 diabetes mellitus Wrist fracture, left Surgical History Surgical History H/O prior ablation treatment 05/2015 H/O shoulder surgery 05/2016 History of cataract surgery History of local excision of skin lesion History of nasal surgery Hx of cardiac cath Hx of cataract removal with insertion of prosthetic lens Status post circumferential ablation of pulmonary vein Family History Family History Mother Acute myocardial infarction Sibling Family history of malignant neoplasm of breast in first degree relative Father Pharyngeal cancer Social History Social History Smoking packs per day: 1.5 Smoking cigarettes per day: 30.0 Years smoked: 45 Smoking pack-years: 67.50 Smoking status: Former smoker Tobacco type: cigarettes Smoking end date: 04/29/14 Alcohol intake: current Drinks per week: 7 Alcohol use details: DRINKS Substance use: never Substance use type: does not use Lack of Transportation: No Lack of Food: Never True Current Housing: I Have Housing Concerned About Future Housing:
--- NOTE | 2023-12-05 13:00 | PM.HPGS ---
History of Present Illness History of Present Illness Consent: Risks, benefits, and alternatives have been discussed and questions answered. Patient agrees to proceed with procedure. Chief complaint: General abdominal pain, GERD without esophagitis Narrative: Ghassan Pacheco is a 68 year old male here for egd (last 2010) and colonoscopy (last 2019 with diverticulosis), gerd on ppi and rolaids, also alternating diarrhea and constipation using imodium as needed, stool calprotectin mildly elevated. Review of Systems Review of Systems: All systems reviewed & are unremarkable except as noted in HPI and below PMFSH Past Medical History Medical History Atrial fibrillation BCC (basal cell carcinoma) COVID-19 Dermatitis Diverticulosis Emphysema of lung GERD (gastroesophageal reflux disease) Hemorrhoid History of GI bleed History of rectal polyps Hyperlipidemia Hypertension Hypothyroidism Mumps JAZ and COPD overlap syndrome Transaminitis Type 2 diabetes mellitus Wrist fracture, left Surgical History Surgical History H/O prior ablation treatment 05/2015 H/O shoulder surgery 05/2016 History of cataract surgery History of local excision of skin lesion History of nasal surgery Hx of cardiac cath Hx of cataract removal with insertion of prosthetic lens Status post circumferential ablation of pulmonary vein Family History Family History Mother Acute myocardial infarction Sibling Family history of malignant neoplasm of breast in first degree relative Father Pharyngeal cancer Social History Social History Smoking packs per day: 1.5 Smoking cigarettes per day: 30.0 Years smoked: 45 Smoking pack-years: 67.50 Smoking status: Former smoker Tobacco type: cigarettes Smoking end date: 04/29/14 Alcohol intake: current Drinks per week: 7 Alcohol use details: DRINKS Substance use: never Substance use type: does not use Lack of Transportation: No Lack of Food: Never True Current Housing: I Have Housing Concerned About Future Housing: No Difficulty Paying Gas/Electric Bills: No Difficulty Paying for Meds: No Currently Unemployed: No Education: Bachelor's Degree Difficulty w/ Childcare or Family Care: No Living arrangements: with family Gender identity (if verbalized by the patient): Male Sexual Orientation (if Verbalized by the Patient): Straight or Heterosexual Spiritual care concerns: No Meds Home Medications and Allergies Home Medications Medication Instructions Recorded Confirmed Type blood-glucose meter (Contour Next #1 ea 05/08/19 12/05/23 Rx Meter) apixaban 5 mg tablet (Eliquis) 5 mg PO BID 12/09/19 12/05/23 History pravastatin 20 mg tablet See Rx Instructions .Route 09/05/22 12/05/23 Rx .COMPLEX #180 tabs loperamide 2 mg capsule (Imodium 2 mg PO Q6H PRN Diarrhea 09/25/22 12/05/23 History A-D) cholestyramine-aspartame 4 gram See Rx Instructions .Route 04/16/23 12/05/23 Rx oral powder for susp in a packet .COMPLEX #30 packets (Cholestyramine Light) blood sugar diagnostic (Contour #100 ea 05/17/23 12/05/23 Rx Next Test Strips) metformin 1,000 mg tablet See Rx Instructions .Route 06/19/23 12/05/23 Rx .COMPLEX #180 tabs metoprolol succinate 25 mg 25 mg PO DAILY 06/19/23 12/05/23 History tablet,extended release 24 hr levothyroxine 75 mcg tablet See Rx Instructions .Route 09/17/23 12/05/23 Rx .COMPLEX #90 tabs omeprazole 40 mg capsule,delayed 40 mg PO DAILY #30 caps 10/10/23 12/05/23 Rx release losartan 100 mg tablet See Rx Instructions .Route 10/14/23 12/05/23 Rx .COMPLEX #90 tabs ibuprofen 200 mg tablet 400 mg PO DAILY PRN Pain 11/21/23 12/05/23 History semaglutide 1 mg/dose (4 mg/3 mL) See Rx Instruc
--- NOTE | 2023-12-05 13:37 | SUR.OPER ---
EGD end 1331, Colonoscopy start time 1333
[2023-12-05 13:48] VITALS: BP 99/67; PULSE 65; RESP 16; O2SAT 95
[2023-12-05 13:58] VITALS: BP 103/67; PULSE 60; RESP 20; O2SAT 95
[2023-12-05 14:08] VITALS: BP 117/74; PULSE 70; RESP 23; O2SAT 94
== END 2023-12-05 14:18 | disposition home or self-care (01) ==
PROVIDERS: PCP Internal Medicine; Referring Provider Nurse Practitioner Family; Visit Provider Internal Medicine Gastroenterology
PROC: 0DJ08ZZ Inspection of Upper Intestinal Tract, Via Natural or Artificial Opening Endoscopic (ICD-10-PCS; CPT 43235; principal; 2023-12-05 13:30)
DX: K29.50 Unspecified chronic gastritis without bleeding (principal); K64.8 Other hemorrhoids; K57.30 Diverticulosis of large intestine without perforation or abscess without bleeding; K21.9 Gastro-esophageal reflux disease without esophagitis; I10 Essential (primary) hypertension; E78.5 Hyperlipidemia, unspecified; E03.9 Hypothyroidism, unspecified; E11.9 Type 2 diabetes mellitus without complications; I48.91 Unspecified atrial fibrillation; J43.9 Emphysema, unspecified; G47.33 Obstructive sleep apnea (adult) (pediatric); E66.9 Obesity, unspecified; Z68.33 Body mass index [BMI] 33.0-33.9, adult; Z79.01 Long term (current) use of anticoagulants; Z79.84 Long term (current) use of oral hypoglycemic drugs; Z79.1 Long term (current) use of non-steroidal anti-inflammatories (NSAID); Z79.85 Long-term (current) use of injectable non-insulin antidiabetic drugs; Z98.890 Other specified postprocedural states; Z87.891 Personal history of nicotine dependence; Z86.010 Personal history of colon polyps; Z85.828 Personal history of other malignant neoplasm of skin; Z80.3 Family history of malignant neoplasm of breast; Z80.2 Family history of malignant neoplasm of other respiratory and intrathoracic organs; Z82.49 Family history of ischemic heart disease and other diseases of the circulatory system
CPT/HCPCS: 43239; 45380; 82948; 88305; 88342; J2704; J7120

== ENCOUNTER 2024-03-23 08:49 | Outpatient (CLI) | payer MEDICARE, OTHER, SELFPAY ==
--- NOTE | ~2024-03-23 | XR_ITS ---
XR hip BI wo pelvis Ordering provider: Catherine Leach NP History: . N28.9 - Disorder of kidney and ureter, unspecified . Comparison: None. FINDINGS: BONES: No acute fracture or dislocation. HIP JOINT SPACES: Bilateral moderate osteoarthritic changes. SACROILIAC JOINT SPACES/LUMBAR SPINE: The sacroiliac joint spaces are normal. Mild degenerative donnelly es of the visualized lower lumbar spine. PUBIC SYMPHYSIS: Pubic symphysitis. SOFT TISSUES: Normal. IMPRESSION: No acute osseous abnormality of the bilateral hips and pelvis. Bilateral hip moderate osteoarthritic changes. Reviewed, dictated and finalized at location A. ER DYER
--- NOTE | ~2024-03-23 | XR_ITS ---
3 VIEWS LUMBAR SPINE Ordering provider: Catherine Leach NP History: . N28.9 - Disorder of kidney and ureter, unspecified . Comparison: None. FINDINGS: VERTEBRAL BODIES: No visible fracture or subluxation. Degenerative changes of the spine. DISK SPACES: Normal. SOFT TISSUES: Atherosclerotic changes of the aorta. IMPRESSION: No acute osseous abnormality lumbar spine. Reviewed, dictated and finalized at location A. WAREHOUSE ASSOCIATE
== END 2024-03-23 08:50 | disposition home or self-care (01) ==
LOC: GOSHIMG 08:50
PROVIDERS: PCP Internal Medicine; Visit Provider Nurse Practitioner
DX: N28.9 Disorder of kidney and ureter, unspecified (principal); M16.0 Bilateral primary osteoarthritis of hip; M54.50 Low back pain, unspecified
CPT/HCPCS: 72100; 73521

== ENCOUNTER 2024-05-21 13:19 | Outpatient (CLI) | payer MEDICARE, OTHER, SELFPAY ==
--- NOTE | ~2024-05-21 | XR_ITS ---
EXAMINATION: XR lg joint inject/asp w image, XR lg joint inject/asp add DATE: 05/21/2024 14:41 INDICATION: Bilateral hip osteoarthritis and pain TECHNIQUE: A time-out was performed to verify the patient's name, date of , and procedure to b e performed. The procedure including the risks, benefits, and alternatives was discussed with the pat ient. Risks discussed included bleeding and infection. The patient understood the risks and agreed to proceed. Attention was first turned to the left hip joint. The skin overlying the left hip joint was prepped and draped in usual sterile fashion. Anesthetic was administered with 1% lidocaine subcutan eously. A 22 G needle was advanced under fluoroscopic guidance into the joint. Injection of 1 mL of Omnipaque 240 confirmed intra-articular position of the needle. Subsequently, injectate consisting of 3 mL of a 2:1 mixture of 0.5% bupivacaine: 80 mg/mL Depo-Medrol for a total dosage of 80 mg Depo-M edrol was instilled. Washout of contrast was seen confirming intra-articular administration. The need le was removed and the entry site was cleaned and dressed. Attention was then turned to the right hip joint. The skin overlying the right hip joint was prepped and draped in usual sterile fashion. Anesthetic was administered with 1% lidocaine subcutaneously. A 22 G needle was advanced under fluoroscopic guidance into the joint. Injection of 1 mL of Omnipaqu e 240 confirmed intra-articular position of the needle. Subsequently, injectate consisting of 3 mL o f a 2:1 mixture of 0.5% bupivacaine: 80 mg/mL Depo-Medrol for a total dosage of 80 mg Depo-Medrol was instilled. Washout of contrast was seen confirming intra-articular administration. The needle was re moved and the entry site was cleaned and dressed. There were no immediate complications. Fluoroscopy exposure time for the combined procedures was 0.2 minutes. The total number of images was 4. Total D AP was 3.0 Gycm^2 FINDINGS: Real-time fluoroscopy demonstrates the needle and contrast first in the left hip joint. Sub sequent images demonstrate a second needle and contrast in the right hip joint. Patient's pain prior to procedure:07/06. Patient's pain following the procedure: 05/08. IMPRESSION: 1. Successful left left hip joint injection of local anesthetic and steroid with decrease in the ashish ent's presenting pain. 2. Successful right left hip joint injection of local anesthetic and steroid with decrease in the pat ient's presenting pain. Reviewed, dictated and finalized at location A. ORK CONTRACT MANAGER IMPRESSION: 1. Successful left left hip joint injection of local anesthetic and steroid wit h decrease in the patient's presenting pain. 2. Successful right left hip joint injection of local anesthetic and steroid wi th decrease in the patient's presenting pain.
== END 2024-05-21 13:20 | disposition home or self-care (01) ==
PROVIDERS: PCP Internal Medicine; Visit Provider Nurse Practitioner Family
DX: M16.12 Unilateral primary osteoarthritis, left hip (principal); M25.551 Pain in right hip
CPT/HCPCS: 20610; 77002; J1010; Q9966

== ENCOUNTER 2024-07-24 10:50 | Outpatient (CLI) | payer MEDICARE, OTHER, SELFPAY ==
--- NOTE | ~2024-07-24 | CT_ITS ---
EXAMINATION:CT lung screening DATE: 07/24/2024 11:55 INDICATION: Nicotine dependence, unspecified, uncomplicated. Smoker who quit 10 years ago with 35 pac k year history. TECHNIQUE: Computed tomography (CT) of the chest was performed without intravenous contrast. Automate d exposure control and iterative reconstruction technique were employed. The dose-length product (DLP ) was 239.37 mGy-cm. COMPARISON: CT 07/05/2023 FINDINGS: There is moderate emphysema. A calcified right lung nodule is consistent with old granuloma tous disease. There is a 6 mm nodule in right lower lobe without change. There is a stable 4 mm nodul e in right middle lobe. There is a stable 4 mm nodule in right upper lobe. No pleural effusion. The h eart size is normal. There are coronary artery calcifications. No pericardial effusion. There are cys ts in the liver measuring up to 3.0 cm. There is kyphosis of thoracic spine. There are bridging endpl ate osteophytes at multiple levels in the spine, consistent with diffuse idiopathic skeletal hyperost osis (DISH). IMPRESSION: 1. Lung-RADS category 2: Benign appearance or behavior. Continue annual screening with noncontrast lo w-dose chest CT in 12 months. Reviewed, dictated and finalized at location A. IMPRESSION: 1. Lung-RADS category 2: Benign appearance or behavior. Continue annual screeni ng with noncontrast low-dose chest CT in 12 months.
--- OUTSIDE RECORDS SUMMARY | 2024-07-24 11:51 | XMS_ITS | Clinical Summary ---
Author Organization [employer] [address] [facility] Address [address] [place] [address] Care Team Providers Care Gun Synchronizer Name Role Phone Deandre Mcdonough DO Primary Care Provider Allergies Active Allergy Reactions Criticality Noted Date Comments Sulfa (Sulfonamide Antibiotics) Unknown,Other (See Comments) Low 05/11/2014 headaches Medications CONTOUR NEXT METER USE TO TEST BS ONCE DAILY. E11.9 05/08/19 20 Active ibuprofen (MOTRIN) 200 mg tablet Take 200 mg by mouth every 6 hours as needed for Pain, Mild. Active clobetasoL (TEMOVATE) 0.05 % Solution Use twice a day as needed for itching or flaking, do not use on the face 50 mL 5 4 2:10 PM CDT 10/23/19 24 Active cholestyramine aspartame (Cholestyramin e Light) 4 gram Powder in Packet Mix 1 packet as directed and take daily with food, avoid other medications within 1 hour before or 4-6 hours after dose. 30 Packet 11 4 10:56 AM THREAD TWISTER 01/07/20 24 Active metFORMIN (GLUCOPHAGE) 1,000 mg tablet Take 1 Tablet (1,000 mg) by mouth daily. 180 Tablet 1 5 10:46 AM THREAD TWISTER 02/13/20 24 Active methylPREDNISo lone (MEDROL DOSPACK) 4 mg Tablets, Dose Pack Take tablets by mouth per package directions. 21 Each 4 4:30 PM THREAD TWISTER 03/23/20 24 Active apixaban (ELIQUIS) 5 mg tablet Take 1 Tablet (5 mg) by mouth 2 times daily. 60 Tablet 11 5 10:28 AM THREAD TWISTER 04/07/20 24 025 Active ketoconazole (NIZORAL) 2 % Shampoo Shampoo twice weekly to scalp, leave on for 5 minutes before rinsing 120 mL 11 5 1:25 PM THREAD TWISTER 04/30/19 25 Active levothyroxine 75 mcg tablet TAKE ONE TABLET BY MOUTH ONCE DAILY 90 Tablet 1 5 11:20 AM THREAD TWISTER 06/01/19 25 Active semaglutide (Ozempic) 1 mg/dose (4 mg/3 mL) Pen Injector Inject 1 mg by subcutaneous injection every 7 days. 3 mL 3 5 4:11 PM CDT 06/03/19 25 Active doxycycline hyclate (VIBRAMYCIN) 20 mg Tablet Take 1 Tablet (20 mg) by mouth 2 times daily. 60 Tablet 2 5 4:31 PM THREAD TWISTER 06/16/19 25 Active blood sugar diagnostic (Contour Next Test Strips) Strip for Diabetes; Use to test blood sugar once a day 100 Each 2 5 4:40 PM THREAD TWISTER 06/16/19 25 Active metoprolol succinate (TOPROL XL) 50 mg Extended Release 24 hour tablet Take 50 mg by mouth daily. Active metoprolol succinate (TOPROL XL) 25 mg Extended Release 24 hour tablet Take 2 Tablets (50 mg) by mouth daily. 30 Tablet 5 5 11:15 AM THREAD TWISTER 06/17/19 25 Active omeprazole (PriLOSEC) 40 mg Capsule, Delayed Release(E.C.) Take 1 Capsule (40 mg) by mouth daily. 30 Capsule 2 5 10:28 AM THREAD TWISTER 06/24/19 25 Active glipiZIDE (GLUCOTROL) 5 mg tablet Take 1 Tablet (5 mg) by mouth daily. 90 Tablet 1 5 10:28 AM THREAD TWISTER 06/26/19 25 Active methylPREDNISo lone (MEDROL DOSPACK) 4 mg Tablets, Dose Pack TAKE DIRECTED ON PACKAGE. 21 Each 5 10:28 AM THREAD TWISTER 06/26/19 25 Active pravastatin (PRAVACHOL) 20 mg tablet TAKE ONE TABLET BY MOUTH ONCE DAILY 90 Tablet 1 5 4:11 PM CDT 06/30/19 25 Active losartan (COZAAR) 100 mg tablet TAKE ONE TABLET BY MOUTH ONCE DAILY 90 Tablet 2 5 4:11 PM CDT 07/08/19 25 Active losartan (COZAAR) 100 mg tablet TAKE ONE TABLET BY MOUTH ONCE DAILY 90 Tablet 2 4 10:56 AM THREAD TWISTER 10/14/19 24 025 Discontinued pravastatin (PRAVACHOL) 20 mg tablet TAKE ONE TABLET BY MOUTH ONCE DAILY 90 Tablet 1 4 11:13 AM THREAD TWISTER 12/10/19 24 025 Discontinued Active Problems Problem Noted Date Diagnosed Date Atypical atrial flutter 12/22/2022 Other persistent atrial fibrillation 07/16/2019 long term care social worker (current) use of anticoagulants 2019 Paroxysmal atrial fibrillation 10/01/2018 Melanocytic nevi of lower extremity or hip 04/18 Neoplasm of uncertain behavior of skin 6 Other melanin hyperpigmentation 04/18/2016 Other seborrheic dermatitis 04/18/2016 Other seborrheic keratosis 04/18/2016 Lung mass 09/14/2014 Encounters Date Type Department Care Team Description 07/15/2024 External Device Data STL ABSTRACTION Provider, Abstract 07/06/2024 External Device Data ST[facility] ABSTRACTION Provider, Abstract 06/25/2024 8:30 AM THREAD TWISTER Office Visit [facility] - [address] [facility] [address] [place] [address] Wally Sheehan MD Paroxysmal atrial fibrillation (CMS/HCC) (Primary Dx); Atypical atrial flutter (CMS/HCC); long term care social worker (current) use of anticoagulants 06/23/2024 External Device Data STL ABSTRACTION Provider, Abstract 06/17/2024 Abstract [facility] - [address] [place] [address] Provider, Abstract 06/17/2024 Orders Only [facility] - [address] [place] [address] Provider, Abstract 06/16/2024 Abstract [facility] - [address] [facility] [address] [address] [facility] [address] [place] [address] Jerrica Campoverde 06/16/2024 Telephone [facility] - [address] [facility] [address] [address] [facility] [address] [place] [address] Wally Sheehan MD a-fluttchaitanya 05/21/2024 External Device Data STL ABSTRACTION Provider, Abstract 05/20/2024 External Device Data ST[facility] ABSTRACTION Provider, Abstract 05/19/2024 External Device Data ST[facility] ABSTRACTION Provider, Abstract 05/13/2024 External Device Data STL ABSTRACTION Provider, Abstract from Last 3 Months Immunizations Immunization Administration Dates Next Due (PREVNAR 20)(6 WKS UP) PNEUM OCOCCAL CONJUGATE VACCINE 20-VALENT (PCV20), POLYSACCHARIDE [id number] CONJUGATE, ADJUVANT 0.5 ML (PF) IM 02/19/2024 Family History Medical History Relation Name Comments Cancer Father Heart Disease Mother Relation Name Status Comments Father Mother Social History Tobacco Use Types Packs/Day Years Used Date Smoking Tobacco: Former Smokeless Tobacco: Never Tobacco Cessation:Counseling Given: Not Answered Alcohol Use Standard Drinks/Week Comments Yes 4 (1 standard drink = 0.6 oz pur e alcohol) bourbon nightly Feeling Safe Answer Date Recorded Are you in a relationship wi th someone who hurts you emotionally and/or physically? No 01/17/2023 Food Insecurity Answer Date Recorded Social/Environmental Concerns No concerns Transportation Needs Answer Date Record ed Social/Environmental Concerns No concerns Housing Stability Answer Date Recorded Social/Environmental Concerns No concerns Utility Needs Answer Date Recorded Social/Environmental Concerns No concerns Sex and Gender Information Value Date Recorded Sex Assigned at Not on file Legal Sex Male 12:26 PM CDT Gender Identity Not on file Sexual Orientation Not on file Last Filed Vital Signs Vital Sign Reading Time Taken Comments Blood Pressure 130/84 06/25/2024 8:26 AM THREAD TWISTER Pulse 85 06/25/2024 8:26 AM THREAD TWISTER Temperature 36.8 C (98.2 F) 01/17/2023 10:00 AM CDT Respiratory Rate 19 01/17/2023 12:00 PM CDT Oxygen Saturation 93% 01/17/2023 12:00 PM CDT Inhaled Oxygen Concentration - - Weight 117.9 kg (260 lb) 06/25/2024 8:26 AM THREAD TWISTER Height 188 cm (6' 2 ) 06/25/2024 8:26 AM THREAD TWISTER Body Mass Index 33.38 06/25/2024 8:26 AM THREAD TWISTER Plan of Treatment Upcoming Encounters Date Type Department Care Team (Late st Contact Info) Description 06/24/2025 10:30 AM THREAD TWISTER Office Visit [facility] - [address] [facility] [address] [address] [facility] [address] [place] [address] [place] [address] [facility] [address] [place] [address] Health Maintenance Due Date Last Done Comments DTAP/TDAP/TD VACCINES (1 - Tdap) 1972 Traditional Medicare (ACO) Annual Wellness Visit 03/15 COLORECTAL SCREENING 1998 Colorectal Cancer Screening 1998 FIT-DNA Q 3 years 1998 FIT/FOBT Q 1 year 1998 Flex Sig/CT Colonography Q 5 years 1998 ZOSTER VACCINE (1 of 2) 2003 Abdominal Aortic Aneurysm (AAA) Screening 2018 INFLUENZA VACCINE (#1) 2023 RSV VACCINE (60+ or ) (1 - 1-dose 75+ series) 2028 PNEUMOCOCCAL VACCINE 50+ YEARS Completed 02/19/2024 Procedures Procedure Name Priority Date/Time Associated Diagnosis Comments MI ECG ROUTINE ECG W/LEAST 12 LDS W/I&R Routine 06/25/2024 8:30 AM THREAD TWISTER Paroxysmal atrial fibrillation (CMS/HCC) Atypical atrial flutter (CMS/HCC) EKG 12-LEAD Routine 06/16/2024 1:25 PM THREAD TWISTER from Last 3 Months Results * MI ECG ROUTINE ECG W/LEAST 12 LDS W/I&R (06/25/2024 8:30 AM THREAD TWISTER) Only the most recent of2 resultswithin the time period is included. Narrative Janet Perez - 06/25/2024 8:30 AM THREAD TWISTER Wally Sheehan MD 06/25/2024 8:58 AM EKG Date/Time: 06/25/2024 8:30 AM Performed by: Wally Sheehan MD Authorized by: Wally Sheehan MD Comments: Sinus rhythm with PACs. Procedure Note Wally Sheehan MD - 06/25/2024 8:30 AM CST Cardiac Electrophysiology Office Progress Note Primary Care Physician Deandre Mcdonough, Subjective: 69 y.o. male presents for follow up. Previously followed by . Arrhythmia Specific History: Atrial fibrillation S/p pulmonary vein isolation 05/25/2015 (Dr. Alexander). Did well forseveral years with only rare episodes of PAF. He underwent cardioversion July 2019 for sustained A-fib RVR however hehad ERAF. S/p redo A-fib ablation at bedtime 2019 (Dr. Alexander). He did wellpost procedure off AAD. Continued frequent palpitations which corresponded to PACs and PVCs onHM. Developed atypical atrial flutter and underwent redo ablation 12/21/2022(Dr. Alexander). Started on amiodarone post procedure. Had recurrentatypical atrial flutter and underwent cardioversion 01/17/2023. Amiodaronewas stopped March 2023. Has [employer] for mobile rhythm monitoring. Has frequent automated reads of A-fib which are actually sinus with PACs. Other PMH: HTN, DM2, COPD, JAZ on CPAP Interval Hx 06/25/2024 Overall doing well. He does report episodes of palpitations and sustainedtachycardia in the 110s. Typically this last a couple hours and thensubsides on its own. His PCP recently increased his metoprolol dose to 50mg. He is compliant with Eliquis and denies bleeding issues. CARDIAC DATA REVIEW: EKG Date/Time: 06/25/2024 8:30 AM Performed by: Wally Sheehan MD Authorized by: Wally Sheehan MD Comments: Sinus rhythm with PACs. Current Outpatient Medications Medication Instructions blood sugar diagnostic (Contour Next Test Strips) Strip for Diabetes; Useto test blood sugar once a day cholestyramine aspartame (Cholestyramine Light) 4 gram Powder in PacketMix 1 packet as directed and take daily with food, avoid other medicationswithin 1 hour before or 4-6 hours after dose. clobetasoL (TEMOVATE) 0.05 % Solution Use twice a day as needed foritching or flaking, do not use on the face CONTOUR NEXT METER USE TO TEST BS ONCE DAILY. E11.9 doxycycline hyclate (VIBRAMYCIN) 20 mg, Oral, TWO TIMES DAILY Eliquis 5 mg, Oral, TWO TIMES DAILY ibuprofen (MOTRIN) 200 mg, EVERY 6 HOURS PRN ketoconazole (NIZORAL) 2 % Shampoo Shampoo twice weekly to scalp, leaveon for 5 minutes before rinsing levothyroxine 75 mcg tablet TAKE ONE TABLET BY MOUTH ONCE DAILY losartan (COZAAR) 100 mg tablet TAKE ONE TABLET BY MOUTH ONCE DAILY metFORMIN (GLUCOPHAGE) 1,000 mg, Oral, DAILY methylPREDNISolone (MEDROL DOSPACK) 4 mg Tablets, Dose Pack Take tabletsby mouth per package directions. metoprolol succinate (TOPROL XL) 50 mg, DAILY metoprolol succinate (TOPROL XL) 50 mg, Oral, DAILY omeprazole (PRILOSEC) 40 mg, Oral, DAILY Ozempic 1 mg, subCUT, EVERY 7 DAYS Review of Systems: A full was obtained. Pertinent positives and negatives are documented inthe HPI. The remainder is negative. Objective: Physical Exam: BP 130/84 Pulse 85 Ht 6' 2 (1.88 m) Wt 117.9 kg (260 lb) BMI33.38 kg/m General: alert, non distressed HEENT: NCAT, MMM Neck: supple, no JVD CV: Regular rate and rhythm, normal S1-S2, no prominent murmur,occasional ectopy Pulm: unlabored, CTAB Abdomen: Soft, NTTP Ext: WWP, No LE edema Neuro: grossly non focal Psych: appropriate LABS: Chemistry: Lab Results Component Value Date/Time NA 139 01/17/2023 09:46 AM K 4.7 01/17/2023 09:46 AM CL 104 01/17/2023 09:46 AM CO2 23 01/17/2023 09:46 AM CA 9.0 01/17/2023 09:46 AM BUN 18 01/17/2023 09:46 AM CREAT 1.17 01/17/2023 09:46 AM GLUCOSE 129 (H) 01/17/2023 09:46 AM ANIONGAP 12 01/17/2023 09:46 AM Lab Results Component Value Date/Time WBC 8.7 12/21/2022 08:10 AM HGB 14.6 12/21/2022 08:10 AM HCT 43.6 12/21/2022 08:10 AM PLT 262 12/21/2022 08:10 AM MCV 97.1 12/21/2022 08:10 AM No results found for: ALT , AST , GGT , ALKPHOS No results found for: TSH , TSHULTRA , THYROIDSTIM Assessment/Plan: ICD-10-CM ICD-9-CM 1. Paroxysmal atrial fibrillation (CMS/HCC) I48.0 427.31 2. Atypical atrial flutter (CMS/HCC) I48.4 427.32 3. residential (current) use of anticoagulants Z79.01 V58.61 Overall doing well with no major episodes requiring hospitalization orcardioversion since his last visit. Continues to have intermittentepisodes. Recent increase in metoprolol dose by his primary care doctor.He tolerated this increase. ECG today is sinus rhythm with PACs. Wediscussed that he has increased burden of A- fib/flutter episodes and ishighly symptomatic would recommend initiation of Tikosyn or sotalol. Hestates at this time he prefers to just managed with metoprolol. [id number] = 3. Continue Eliquis 5 mg p.o. twice daily. No bleedingissues. RTC in 1 year. Plan discussed with patient; questions answered; patient agrees withcurrent plan. I would like to thank you for allowing me to participate in this patient'scare, if you have any questions regarding their visit today please do nothesitate to contact me at any time. Wally Sheehan MD Cardiac Media Arts Professor [facility] [address] [place] [address], [address] [place] [address] Wally Sheehan MD ECG ORDERABLES Final Result from Last 3 [place] [id number] MEDICARE PART A AND B [facility] RX [employer] Medicare Part B RX [employer] Medicare Part B RX [employer] Medicare Part D Advance Directives For more information, please contact: [phone] * Full Code (Latest Code Status on File) Date Activated Date Inactivated Comments 11/04/2019 12:13 PM 11/05/2019 11:21 AM Care Teams Gun Synchronizer Relationship Specialty Start Date End Date Deandre Mcdonough DO [address] [address] PCP - General Internal Medicine 05/22/18
--- OUTSIDE RECORDS SUMMARY | 2024-07-24 11:52 | XMS_ITS | Continuity of Care Document ---
Author Organization [facility] Address [address] [facility] [address] [place] [address] Phone Care Team Providers Care Professor Of Fine Art Name Role Phone Tyron Antunez DPM Unavailable Unavailable Allergies, Adverse Reactions, Alerts Substance Reaction Status Criticality Sulfa (Sulfonamide Antibiotics) Other Active No Information Medications Medication Instructions Dosage Effective Dates (start - stop) Status Comments doxycycline monohydrate 50 mg capsule - Active losartan 50 mg tablet - Acti ve pravastatin 20 mg tablet - Active aspirin 81 mg tablet,delayed release take 1 tablet by oral route every day 81 MG - Active Synthroid 75 mcg tablet take 1 tablet by oral route every day 75 MCG - Active metformin 500 mg tablet take 2 tablet by oral route 2 times every day with morning and evening meals 1000 MG - Active esomeprazole magnesium 40 mg capsule,delayed release take 1 capsule by oral route every day 40 MG - Active Procedures Procedure Date Ref[facility] Non Covered [facility] Global/Postop followup visit Non Covered [facility] Office/outpatient visit,new, mod 2018 Strapping of ankle/foot Advance Directives Directive Yes / No Effective Date File Name No Information Encounters Encounter Description Practice Location Reason(s) For Visit Diagnoses Date Provider Providers Copied on Encounter [facility], [address], [id number], [place] tel:[phone] [facility] No Information Tulio Potter [address] [facility], [address], [place], [place], [id number] , [place]. tel: [phone] [facility], [address] [address], [place], [place], [id number], [place] [phone] [facility] No Information 1 Tulio Potter [address] [facility], [address] [address], [place], [place], [id number] , [place]. tel: [phone] [facility], [address] [address], [place], [place], [id number], [place] [phone] [facility] Follow Up of adolfo feet (chief complaint) Congenital talipes calcaneovalgus 9 Tulio Potter [address] [facility], [address] [address], [place], [place], [id number] , [place]. tel: [phone] Referring Provider: Tyron Giang, [address] [place] [address], [place], [address] . tel:[phone] [facility], [address], [id number], [place] [phone] [facility] Follow Up of right foot (chief complaint) Congenital talipes calcaneovalgus 9 Tulio Potter [address] [facility], [address] [address], [place], [place], [id number] , [place]. tel: [phone] [facility], [address], [id number], [place] [phone] [facility] No Information 9 Tulio Potter [address] [facility], [address] [address], [place], [place], [id number] , [place]. tel: [phone] Office/outpa tient visit,new, [facility], [address] [address], [place], [place], [id number], [place] tel:[phone] [facility] Rt Ankle Pain (chief complaint) Congenital talipes calcaneovalgusPla ntar fasciitisPain in right footType 2 diabetes mellitus without complications 9 Tulio Potter [address] [facility], [address], [place], [place], [id number] , [place]. tel: [phone] Referring Provider: Tyron Giang, [address] [facility] [address], [place], [address] . tel:[phone] Family History Family Member Type Diagnosis Age At Onset Mother Problem (finding) Heart Disease Sister Problem (finding) Cancer, unknown Father Problem (finding) Cancer, unknown Payers Payer name Insurance type Covered green party ID Authoriza tion(s) [place] MB [id number] [facility] [place] [id number] Social History Type Description Quantity Date Captured Comments Alcohol Use Details Unknown Caffeine Use Details Unknown Tobacco Use Status No Information Smoking Status No Information Sex Male Chief Complaint And Reason For Visit No Information Reason For Referral Reason For Referral No Information History Of Present Illness Encounter Date Complaint History Of Prese nt Illness Follow Up of adolfo feet Patient re turns for an orthotic check. Follow Up of right foot Patient returns for his right foot. Rt Ankle Pain Patient presents for his right ankle. Functional Status Date Functional Assessmen t No Information Instructions Date Instruction Additional Infor mation No Information Assessments Type Assessment Date No Information Patient Care Teams Name Effective Dates (start - stop) Status Members No Information
--- OUTSIDE RECORDS SUMMARY | 2024-07-24 11:52 | XMS_ITS | Clinical Summary ---
Author Organization [facility] Address [address] [place] [address] Care Team Providers Care Mop Handle Assembler Name Role Phone Deandre Mcdonough DO Primary Care Provider [phone] Allergies Active Allergy Reactions Criticality Noted Date Comments Sulfa (Sulfonamide Antibiotics) Medications metFORMIN (GLUCOPHAGE) 500 mg tablet 04/05/2016 Activ e losartan (COZAAR) 50 mg tablet Take 50 mg by mouth daily 03/31/2019 Active pravastatin (PRAVACHOL) 20 mg tablet Take 20 mg by mouth daily 03/18/2019 Active levothyroxine (SYNTHROID) 75 mcg tablet Take 75 mcg by mouth daily 04/20/2019 Active psyllium seed, sugar, powder take as directed as needed 08/24/2015 Active ibuprofen (ibuprofen) 200 mg tab/cap take as directed as needed 04/06/2015 Active apixaban (ELIQUIS) 5 mg tablet Take 5 mg by mouth 2 (two) times a day 06/26/2019 Active blood glucose diagnostic (Contour Next Test Strips) strip USE TO TEST BLOOD SUGAR ONCE DAILY 04/20/2019 Active blood-glucose meter (Contour Next Meter) misc USE TO TEST BS ONCE DAILY. E11.9 05/08/2019 Active Active Problems Problem Noted Date Diagnosed Date Lung mass 09/14/2014 Surgical History Surgery Date Site/Laterality Comments SINUS SURGERY Sinus Surgery - (Added by TW Conv) SHOULDER SURGERY Medical History Medical History Date Comments Personal history of other di seases of the digestive system History of esophageal reflux - (Added by TW Conv) Personal history of other en docrine, nutritional and metabolic disease History of hypothyro idism - (Added by TW Conv) Atrial fibrillation (HCC) Diabetes mellitus (HCC) Gastric reflux Thyroid disease Family History Medical History Relation Name Comments Cancer Brother Cancer Father Heart disease Mother Family history of cardiac disorder - (Added by TW Conv) Breast cancer Sister Family history of malignant neoplasm of female breast - (Added by TW Conv) Cancer Sister Relation Name Status Comments Brother Father Mother Sister Social History Tobacco Use Types Packs/Day Years Used Date Smoking Tobacco: Former Personal Safety Answer Date Recorded Getting School Help Needed Not on file 06/24 Sex and Gender Information Value Date Recorded Sex Assigned at Not on file Legal Sex Male 5:48 AM CORPORATE REPRESENTATIVE Gender Identity Male 06/26/2020 10:04 AM CORPORATE REPRESENTATIVE Sexual Orientation Straight 06/26/2020 10 :04 AM CORPORATE REPRESENTATIVE 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 on file Not on file Not on xavier e Obstetrics History Last Filed Vital Signs Vital Sign Reading Time Taken Comments Blood Pressure 155/101 08/30/2015 9:51 AM CDT Pulse 73 08/30/2015 9:51 AM CDT Temperature - - Respiratory Rate - - Oxygen Saturation 95% 08/30/2015 9:51 AM CDT Inhaled Oxygen Concentration - - Weight 117.9 kg (260 lb) 05/11/2019 8:01 AM CORPORATE REPRESENTATIVE Height 188 cm (6' 2 ) 05/11/2019 8:01 AM CORPORATE REPRESENTATIVE Body Mass Index 33.38 05/11/2019 8:01 AM CORPORATE REPRESENTATIVE Plan of Treatment Health Maintenance Due Date Last Done Comments Colon Cancer Screening-Colonoscopy 1955 Depression Screening 1953 Fall Risk Assessment 1953 Hepatitis C Screening 1953 Hepatitis B Screening 1971 Pneumococcal vaccine 65+ (1 of 1 - PCV) 2003 Zoster Vaccine (1 of 2) 2003 Abdominal Aortic Aneurysm (AAA) Screen 2018 Well Visit 65+ 2018 Influenza Vaccine (#1) 2023 DTaP/Tdap/Td Vaccine (2 - Td or Tdap) 11/20/2026 Insurance MEDICARE [facility] [facility] MEDICARE [employer] [facility] Care Teams Mop Handle Assembler Relationship Specialty Start Date End Date Deandre Mcdonough DO PCP - General Internal Medicine 05/06/19
--- OUTSIDE RECORDS SUMMARY | 2024-07-24 11:52 | XMS_ITS | Referral Summary ---
Author Organization [facility] Address [address] [place] [id number] Care Team Providers Care Floor Sanding Machine Operator Name Role Phone Deandre Mcdonough DO Primary Care Provider [phone]- [phone] Allergies Active Allergy Reactions Criticality Noted Date [...] Noted Date Diagnosed Date Lung mass 09/14/2014 Social History Tobacco Use Types Packs/Day Years Used Date Smoking Tobacco: Former Personal Safety Answer Date Recorded Getting School Help Needed Not on file 06/24 Sex and Gender Information Value Date Recorded Sex Assigned at Not on file Legal Sex Male 5:48 AM RISK MANAGEMENT DIRECTOR Gender Identity Male 06/26/2020 10:04 AM RISK MANAGEMENT DIRECTOR Sexual Orientation Straight 06/26/2020 10 :04 AM RISK MANAGEMENT DIRECTOR Occupation Industry Job Start Date Job End Date [employer] Not on file Not on file Not on xavier e Last Filed Vital Signs Vital Sign Reading Time Taken Comments Blood Pressure 155/101 08/30/2015 9:51 AM CDT Pulse 73 08/30/2015 9:51 AM CDT Temperature - - Respiratory Rate - - Oxygen Saturation 95% 08/30/2015 9:51 AM CDT Inhaled Oxygen Concentration - - Weight 117.9 kg (260 lb) 05/11/2019 8:01 AM RISK MANAGEMENT DIRECTOR Height 188 cm (6' 2 ) 05/11/2019 8:01 AM RISK MANAGEMENT DIRECTOR Body Mass Index 33.38 05/11/2019 8:01 AM RISK MANAGEMENT DIRECTOR Plan of Treatment Not on file Insurance MEDICARE [facility] MEDICARE [place] MEDICARE [place] Care Teams Floor Sanding Machine Operator Relationship Specialty Start Date End Date Deandre Mcdonough DO PCP - General Internal Medicine 05/06/19
== END 2024-07-24 10:51 | disposition home or self-care (01) ==
PROVIDERS: PCP Internal Medicine; Visit Provider Nurse Practitioner
DX: Z12.2 Encounter for screening for malignant neoplasm of respiratory organs (principal); Z87.891 Personal history of nicotine dependence
CPT/HCPCS: 71271